=== PATIENT | female | born 1975 | race Caucasian/White ===

== ENCOUNTER → 2019-12-08 08:24 | Outpatient (CLI) | payer OTHER, SELFPAY ==
--- NOTE | ~2019-12-08 | MMUS_ITS ---
EXAMINATION: MM diagnostic arnel LT w lenin, US breast LT limited HISTORY: Follow-up left breast mass TECHNIQUE: Additional 3-D tomosynthesis images of the left breast were performed and synthetic 2-D im ages were generated. CAD analysis was submitted and interpreted. High resolution left breast ultrasou nd was performed. COMPARISON: Comparison to multiple prior studies sequentially, with oldest reviewed study dated 03/24. FINDINGS: MAMMOGRAPHIC FINDINGS: The breasts are heterogenously dense, which may obscure small masses. There are no suspicious masses, calcifications or architectural distortion in the left breast to suggest malignancy. ULTRASOUND: Left breast ultrasound: At 3:00, 4 cm from the nipple, there is an irregular shaped hypoechoic mass m easuring 6 x 4 x 4 mm, slightly increased in size compared with prior examination allowing for differ ences of technique. No internal vascularity. There are some angular margins. No posterior features. IMPRESSION: 1. Slightly increased size of 6 mm hypoechoic mass left breast at 3:00, 4 cm from the nipple. 2. Ultrasound guided left breast biopsy recommended. BI-RADS category 4, suspicious findings. Reviewed, dictated and finalized at location A. STANT TEACHING PROFESSOR IMPRESSION: 1. Slightly increased size of 6 mm hypoechoic mass left breast at 3:00, 4 cm fr om the nipple. 2. Ultrasound guided left breast biopsy recommended. BI-RADS category 4, suspicious findings.
== END ==
PROVIDERS: PCP Family Medicine; Visit Provider Obstetrics & Gynecology Gynecology
DX: N63.25 Unspecified lump in the left breast, overlapping quadrants (principal); R92.8 Other abnormal and inconclusive findings on diagnostic imaging of breast
CPT/HCPCS: 76642; 77061; 77065; G0279

== ENCOUNTER 2024-04-19 17:40 | Emergency (ER) | payer OTHER, SELFPAY ==
--- NOTE | ~2024-04-19 | XR_ITS ---
EXAMINATION: XR ankle RT min 3V DATE: 04/19/2024 18:02 INDICATION: Right ankle injury and pain and swelling. TECHNIQUE: 4 views of right ankle were obtained. COMPARISON: None. FINDINGS: Bone alignment is normal. No fracture. Joint spaces are normal. There is ankle soft tissue swelling. IMPRESSION: 1. No fracture. Reviewed, dictated and finalized at location E. IMPRESSION: 1. No fracture.
[2024-04-19 17:45] VITALS: BP 132/97; PULSE 101; RESP 16; TEMP 36.4; O2SAT 99
--- NOTE | 2024-04-19 17:48 | ED.LOWEXIN ---
HPI - Extremity Injury (Lower) General Chief Complaint: Extremity Injury, Lower Stated Complaint: R ANKLE INJURY Source: patient Mode of arrival: ambulatory Limitations: no limitations History of Present Illness HPI Narrative: 49 y/o female presented for c/o right ankle pain and swelling after injury just prior to arrival. States she tripped while at the pool and rolled the ankle. Has an abrasion to the top of the ankle. Pain is minimal at rest, worse when walking. Endorses normal range of motion at the ankle. Related Data Home Medications Medication Instructions Recorded Confirmed candesartan 16 1 tablet PO DAILY 03/17/22 04/19/24 mg-hydrochlorothiazide 12.5 mg tablet Allergies Allergy/AdvReac Type Severity Reaction Status Date / Time No Known Allergies Allergy Verified 04/19/24 17:55 Review of Systems Review of Systems: CONSTITUTIONAL: Denies body aches, fever, chills CARDIOVASCULAR: Denies chest pain, palpitations, or edema. RESPIRATORY: Denies cough or dyspnea. SKIN: reports scratches to right ankle MUSCULOSKELETAL: reports right ankle pain and swelling NEUROLOGIC: Denies headache, numbness, tingling, or weakness. All systems reviewed & are unremarkable except as noted in HPI and below PMFSH Past Medical History Medical History (Updated 04/19/24 @ 18:12 by Jelena Fagan APRN) Essential hypertension Family History Family History (Updated 12/06/17 @ 09:48 by DOCTOR UNKNOWN) Other Cerebrovascular accident Diabetes mellitus Family history of kidney disease Family history of malignant neoplasm Hypertension Social History Social History (Updated 03/17/22 @ 13:11 by Mary Ocampo MA) Smoking status: Current every day smoker Alcohol intake: never Substance use: never Comments At time of signature, I have reviewed and agree with nursing past medical, surgical, social and family history unless otherwise noted. Please see nursing chart for further information. There is no relevant family history pertinent to the presenting complaint Exam Narrative: GENERAL: Well-appearing CHEST: Speaks in full sentences. No respiratory distress. HEART: Regular rate and rhythm. Normal and equal peripheral pulses. EXTREMITIES: Right ankle normal range of motion with flexion/extension/rotation, but endorses some pain with movement. Significant soft tissue swelling to the lateral malleolus, tender with palpation. Superficial abrasion over the dorsal aspect of ankle, irregular approx 4cm. No ecchymosis. Right foot has normal strength and sensation, pulse palpable and equal bilaterally, skin warm, dry, pink. Capillary refill less than 3 seconds. SKIN: Warm, dry NEURO: Alert and oriented x3. PSYCH: Normal mood and affect Course Course Emergency Course: Patient is aware of diagnosis, understands and agrees to treatment plan. Anticipatory guidance given. Patient agrees to follow-up as directed and is aware of reasons to seek care at the emergency department. Portions of this record may have been created with voice recognition software Level of Care: Express Care Visit Vital Signs Vital signs: Vital Signs Temperature 97.6 F 04/19/24 17:45 Pulse Rate 101 H 04/19/24 17:45 Respiratory Rate 16 04/19/24 17:45 Blood Pressure 132/97 H 04/19/24 17:45 Pulse Oximetry 99 04/19/24 17:45 Temperature 97.6 F 04/19/24 17:45 Pulse Rate 101 H 04/19/24 17:45 Respiratory Rate 16 04/19/24 17:45 Blood Pressure 132/97 H 04/19/24 17:45 Pulse Oximetry 99 04/19/24 17:45 Oxygen Delivery Room Air 04/19/24 17:48 Reviewed MDM - Extremity Injury (Lower) MDM Narrative Medical decision making narrative: Discussed physical exam findings and results x-ray. Ice pack provided, wound cleansed per RN. ASHWIN applied, crutch training completed. Advised supportive measures and signs/symptoms to go to the ER. Pt is appropriate for outpt treatment and f/u. Differential Caitlyn
== END 2024-04-19 18:25 | disposition home or self-care (01) ==
PROVIDERS: Emergency Provider Nurse Practitioner Family
DX: S93.401A Sprain of unspecified ligament of right ankle, initial encounter (principal); S96.911A Strain of unspecified muscle and tendon at ankle and foot level, right foot, initial encounter; X50.9XXA Other and unspecified overexertion or strenuous movements or postures, initial encounter; I10 Essential (primary) hypertension
CPT/HCPCS: 73610; 99213; G0463

== ENCOUNTER 2024-05-27 13:34 | Emergency (ER) | payer OTHER, SELFPAY ==
[2024-05-27 13:40] VITALS: BP 148/110; PULSE 126; RESP 16; TEMP 37; O2SAT 99
[2024-05-27 13:46] VITALS: BP 148/110; PULSE 126; RESP 16; TEMP 37; O2SAT 99
--- NOTE | 2024-05-27 13:55 | ED.SKABFB ---
HPI - Skin/Abscess/Foreign Bdy General Chief complaint: Skin/Abscess/Foreign Body Stated complaint: rash Time Seen by Provider: 05/27/24 13:53 Source: patient, RN notes reviewed and old records reviewed Mode of arrival: ambulatory Limitations: no limitations History of Present Illness HPI narrative: 49 year old female who presents to [facility] care with complaints of breaking out in a generalized red raised itchy rash all over this morning. Patient reports no difficulty with swallowing or with her breathing SAO2 99% on room air. Patient was started on Bactrim on the of this month for infection to her finger and has been taking twice daily then this morning developed generalized rash, did not take dose of Bactrim this morning. Patient has not taken any OTC medications for her rash. MD complaint: rash Onset (ago): hour(s) (this morning) Location: generalized Quality: pruritic Treatments prior to arrival: none Related Data Home Medications Medication Instructions Recorded Confirmed candesartan 16 1 tablet PO DAILY 03/17/22 05/27/24 mg-hydrochlorothiazide 12.5 mg tablet Allergies Allergy/AdvReac Type Severity Reaction Status Date / Time sulfamethoxazole Allergy Rash Verified 05/27/24 13:51 [From Sulfamethoxazole-Trimethoprim] trimethoprim Allergy Rash Verified 05/27/24 13:51 [From Sulfamethoxazole-Trimethoprim] Review of Systems Review of Systems: CONSTITUTIONAL: Denies fever, chills, or sweats. CARDIOVASCULAR: Denies chest pain, palpitations, or edema. RESPIRATORY: Denies cough or dyspnea. SKIN: Reports generalized rash with itching over body which started today, denies any shortness of breath or difficulty swallowing MUSCULOSKELETAL: Denies joint pain or myalgia. NEUROLOGIC: Denies headache, numbness, or weakness. All systems reviewed & are unremarkable except as noted in HPI and below PMFSH Past Medical History Medical History (Updated 05/27/24 @ 16:49 by Renee Farley NP) Essential hypertension Gestational diabetes Surgical History Surgical History (Updated 05/27/24 @ 16:49 by Renee Farley NP) History of tonsillectomy Hx of cholecystectomy Previous section Family History Family History (Updated 12/06/17 @ 09:48 by DOCTOR UNKNOWN) Other Cerebrovascular accident Diabetes mellitus Family history of kidney disease Family history of malignant neoplasm Hypertension Social History Social History (Updated 05/27/24 @ 16:48 by Renee Farley NP) Smoking status: Former smoker Alcohol intake: never Substance use: never Living arrangements: with family Gender identity (if verbalized by the patient): Female Comments At time of signature, agree with nursing past medical, surgical, social and family history. There is no relevant family history pertinent to the presenting complaint Exam Narrative: GENERAL: Well-appearing, well-nourished, and in no acute distress. HEAD: Normocephalic, atraumatic. EYES: PERRLA, conjunctivae clear, and EOMI. ENT: Mucous membranes moist. Oropharynx without edema, erythema or lesions. no difficulty swallowing NECK: Supple. No lymphadenopathy CHEST: Clear to auscultation. No respiratory distress.SAO2 99% on room air HEART: Regular rate and rhythm. SKIN: Warm, dry.? scattered fine red raised rash generalized which is itchy, recently treated for infection in her finger with Bactrim which was started on 05/18/2024. Patient reports that finger infection which has improved. NEURO:? Alert and oriented x3. PSYCH: Normal mood and affect Course Course Emergency Course: Patient is aware of diagnosis, understands and agrees to treatment plan.? Anticipatory guidance given.? Patient agrees to follow-up as directed and is aware of reasons to seek care at the emergency department. Portions of this record may have been created with voice recognition software Level of Care: Tony Quigley
[2024-05-27] MEDS: methylPREDNISolone ACETATE 80 MG/ML VIAL IM (14:14)
[2024-05-27 14:24] VITALS: BP 131/96
== END 2024-05-27 14:24 | disposition home or self-care (01) ==
PROVIDERS: Emergency Provider Registered Nurse
DX: L50.9 Urticaria, unspecified (principal); T36.8X5A Adverse effect of other systemic antibiotics, initial encounter; Z87.891 Personal history of nicotine dependence; I10 Essential (primary) hypertension
CPT/HCPCS: 96372; 99213; G0463; J1010